=== PATIENT | female | born 1955 | race African-American/Black ===

== ENCOUNTER 2018-08-23 06:43 | Outpatient (CLI) | payer MEDICARE ==
[2018-08-23 16:29] LABS: Hemoglobin 14.3 g/dL (12.0-16.0); Mean Corpuscular HGB CONC 32.1 g/dL (32.0-36.0); Mean Corpuscular Hemoglobin 29.9 pg (27.0-31.0); Mean Platelet Volume 8.3 fL (7.4-10.4); Platelet Count 277 thou/uL (130-400); RBC Distribution Width 12.5 % (11.5-14.5); Red Blood Cell (RBC) Count 4.78 mill/uL (4.20-5.40); White Blood Cell (WBC) Count 9.5 thou/uL (4.8-10.8)
[2018-08-23 16:49] LABS: ALT (SGPT) 22 U/L (8-55); AST (SGOT) 16 U/L (5-34); Albumin 4.2 g/dL (3.4-4.8); Alkaline Phosphatase 107 U/L (40-150); Anion Gap 12 mmol/L (10-20); BUN (Urea Nitrogen) 15 mg/dL (9.8-20.1); Bilirubin, Total 0.3 mg/dL (0.2-1.2); Calc. Creatinine Clearance 0 mL/min (70-130); Calcium 10.5 mg/dL (7.8-10.44); Carbon Dioxide 27 mmol/L (23-31); Chloride 105 mmol/L (98-107); Estimated GFR-MDRD Greater than 90; Globulin 3.2 g/dL (2.4-3.5); Glucose 95 mg/dL (80-115); Potassium 4.5 mmol/L (3.5-5.1); Protein, Total 7.4 g/dL (6.0-8.3); Sodium 139 mmol/L (136-145)
== END 2018-08-23 06:44 | disposition home or self-care (01) ==
LOC: LABBT 06:43
PROVIDERS: ATTEND Obstetrics & Gynecology
DX: Z01.818 Encounter for other preprocedural examination (principal); N81.11 Cystocele, midline
CPT/HCPCS: 80053; 85027; 86850; 86900; 86901; 93005; 93010

== ENCOUNTER 2018-08-23 16:15 | Inpatient (IN) | payer MEDICARE ==
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
[2018-08-23 16:18] VITALS: BMI 29.6
[2018-08-26] MEDS ORDERED: CEFAZOLIN 2 GM/50 ML BAG ONE (09:14)
[2018-08-26] MEDS ORDERED: Lidocaine 1% w/Epinephrine 1:100K 30 ML VIAL ONE (09:41)
[2018-08-26] MEDS ORDERED: Fentanyl 100 MCG/2 ML VIAL ONE ×2 (10:11→11:49)
[2018-08-26] MEDS ORDERED: Promethazine HCl 25 MG/ML VIAL SLOW IVP PRN (10:47)
[2018-08-26] MEDS ORDERED: HYDROmorphone 2 MG/ML VIAL SLOW IVP PRN (10:47)
[2018-08-26] MEDS ORDERED: Promethazine HCl 25 MG/ML VIAL IM PRN (10:47)
[2018-08-26] MEDS ORDERED: Meperidine HCl/PF 25 MG/ML VIAL SLOW IVP PRN (10:47)
[2018-08-26] MEDS ORDERED: traMADol HCl 50 MG TAB PO PRN (11:20)
[2018-08-26] MEDS ORDERED: Zolpidem Tartrate 5 MG TAB PO PRN (11:20)
[2018-08-26] MEDS ORDERED: Acetaminophen 325 MG TAB PO PRN (11:20)
[2018-08-26] MEDS ORDERED: Ondansetron PF 4 MG/2 ML Vial IVP PRN (11:20)
[2018-08-26] MEDS ORDERED: Bisacodyl 10 MG SUPP PR PRN (11:20)
[2018-08-26] MEDS ORDERED: Morphine 4 MG/ML VIAL SLOW IVP PRN (11:20)
[2018-08-26] MEDS ORDERED: Simethicone Chewable 80 MG TAB PO PRN (11:20)
[2018-08-26] MEDS ORDERED: diphenhydrAMINE 25 MG CAP PO PRN (11:20)
[2018-08-26] MEDS: traMADol HCl 50 MG TAB PO PRN ×2 (15:28→21:21)
[2018-08-26] MEDS: metFORMIN 500 MG TAB PO SCH (15:30)
--- NOTE | 2018-08-26 17:06 | OP ---
DATE OF PROCEDURE: 08/26/2018 PREOPERATIVE DIAGNOSIS: A 63-year-old female, prior hysterectomy with symptomatic grade 4 cystocele. POSTOPERATIVE DIAGNOSIS: A 63-year-old female, prior hysterectomy with symptomatic grade 4 cystocele. PROCEDURE PERFORMED: Anterior repair. RESILIENT TILE INSTALLER SURGEON: Tejinder Thomas MD ANESTHESIA: General endotracheal. ESTIMATED BLOOD LOSS: Less than 50 mL. COMPLICATIONS: None. COUNTS: Correct x2. ANTIBIOTICS: 2 g Ancef on-call to OR. FINDINGS: 1. Anterior vaginal cystocele midline prolapsing approximately a centimeter past the vaginal introitus. Upper vaginal vault appeared adequately supported and no significant rectocele seen. 2. Clear urine present in Bauman catheter postprocedure. DISPOSITION: Recovery room, stable. DESCRIPTION OF PROCEDURE: The patient had previously been given informed consent. She was taken back to the operating room, where she received general endotracheal anesthetic agent without complications, placed in dorsal lithotomy position with the use of Edgar stirrups. She was prepped and draped in usual sterile fashion. Bauman catheter was placed. The anterior vaginal cystocele was noted with the previously mentioned findings. The vaginal cuff line was located, and two Allis clamps were placed at the angles. The most posterior component of a midline cystocele was then grasped with pickups, and the anterior vaginal mucosa was infiltrated with 1% lidocaine with epinephrine for hydrodissection. Midline incision was made starting most caudally towards the urethral meatus in the midline approximately 1.5 cm from the urethral meatus. The edges of the anterior vaginal mucosa were grasped with Allis clamps intervening as we progressed up towards the urethral meatus. The anterior vaginal mucosa was dissected sharply and bluntly with the use of Metzenbaum scissors and counter traction, and Ray-Mireya. The internal pelvic fascia was loosened from the anterior vaginal mucosa reducing the cystocele in its entirety. Once this was accomplished, the endopelvic fascia was then plicated starting most closely anteriorly to the urethral meatus. The endopelvic fascia was plicated in the midline and worked toward the posterior portion of the cystocele, reducing the cystocele in its entirety. The excess vaginal mucosa was trimmed, and then the anterior vaginal mucosa was then closed with 0 Vicryl suture incorporating the endopelvic fascia to rid the space, starting near the urethra and working back toward the vaginal cuff line. Hemostasis along the vaginal mucosa was confirmed. This cystocele appeared well reduced. A moistened Kerlix was then placed in the vaginal vault for packing, and clear urine was draining from the Bauman catheter. The patient awakened and transferred to recovery room. Job ID: [id number]
[2018-08-26] MEDS: Lactated Ringer's 1,000 ML IV SCH (21:12)
[2018-08-26] MEDS: Sodium Chloride 0.9% 1,000 ML IV SCH (21:12)
[2018-08-26] MEDS: Ibuprofen 800 MG TAB PO SCH (21:19)
[2018-08-26] MEDS: Gabapentin 300 MG CAP PO SCH (21:20)
[2018-08-26] MEDS: Atorvastatin Calcium 10 MG TAB PO SCH (21:20)
[2018-08-27] MEDS: Lactated Ringer's 1,000 ML IV SCH ×2 (03:45→07:50)
[2018-08-27] MEDS: Sodium Chloride 0.9% 1,000 ML IV SCH ×3 (03:45→07:51)
[2018-08-27 07:06] LABS: Hemoglobin 12.2 g/dL (12.0-16.0); Mean Corpuscular Hemoglobin 29.7 pg (27.0-31.0); Mean Corpuscular Volume 92.7 fL (78.0-98.0); Platelet Count 241 thou/uL (130-400); RBC Distribution Width 12.5 % (11.5-14.5); Red Blood Cell (RBC) Count 4.11 mill/uL (4.20-5.40); White Blood Cell (WBC) Count 11.2 thou/uL (4.8-10.8)
[2018-08-27] MEDS: metFORMIN 500 MG TAB PO SCH ×2 (07:57→16:25)
[2018-08-27] MEDS: Aspirin 81 mg Enteric Coated Tablet PO SCH (07:58)
[2018-08-27] MEDS: Hydrochlorothiazide 25 MG TAB PO SCH (07:58)
[2018-08-27] MEDS: Gabapentin 300 MG CAP PO SCH ×2 (07:59→20:00)
[2018-08-27] MEDS: Ibuprofen 800 MG TAB PO SCH ×2 (07:59→20:00)
[2018-08-27] MEDS: traMADol HCl 50 MG TAB PO PRN ×2 (15:53→22:31)
[2018-08-27] MEDS: Atorvastatin Calcium 10 MG TAB PO SCH (20:00)
[2018-08-28] MEDS: Lactated Ringer's 1,000 ML IV SCH (02:27)
[2018-08-28] MEDS: Sodium Chloride 0.9% 1,000 ML IV SCH (02:27)
[2018-08-28 06:00] LABS: Hemoglobin 12.3 g/dL (12.0-16.0); Mean Corpuscular HGB CONC 32.3 g/dL (32.0-36.0); Mean Corpuscular Hemoglobin 29.9 pg (27.0-31.0); Mean Corpuscular Volume 92.6 fL (78.0-98.0); Mean Platelet Volume 8.4 fL (7.4-10.4); Platelet Count 257 thou/uL (130-400); RBC Distribution Width 12.3 % (11.5-14.5); White Blood Cell (WBC) Count 11.1 thou/uL (4.8-10.8)
[2018-08-28 08:04] VITALS: BP 110/56; TEMP 98.1
[2018-08-28] MEDS: Ibuprofen 800 MG TAB PO SCH (09:00)
[2018-08-28] MEDS: metFORMIN 500 MG TAB PO SCH (09:00)
[2018-08-28] MEDS: Gabapentin 300 MG CAP PO SCH (09:00)
[2018-08-28] MEDS: Aspirin 81 mg Enteric Coated Tablet PO SCH (09:00)
[2018-08-28] MEDS: Hydrochlorothiazide 25 MG TAB PO SCH (09:00)
--- NOTE | 2018-08-29 09:47 | DIS ---
DATE OF ADMISSION: 08/26/2018 DATE OF DISCHARGE: 08/28/2018 DIAGNOSES: 1. Grade 4 cystocele. 2. Postop urinary retention. PROCEDURE PERFORMED: Anterior repair. SUMMARY HOSPITAL COURSE: Ms. Lawson is a 63-year-old female, who previously had complete hysterectomy history, who had symptomatic grade 4 cystocele. She underwent an uncomplicated anterior repair on 08/26/2018. Postoperatively, the patient progressed well, but she did have postop urinary retention on postop day #1 and had a postvoid residual of over 800 mL. Bauman catheter was reinserted due to the large volume and inability to void. She then attempted on postop day #2 again to void and then was unsuccessful and Bauman catheter was replaced and was discharged on 08/28/2018. PLAN: Plan is for her to return to my office on 08/29/2018 for Bauman catheter removal and assessment of voiding capabilities. She was given a prescription for tramadol 50 mg q.6 hours p.r.n. for pain and ibuprofen as directed [id number] and her maintenance medications for her chronic hypertension, hyperlipidemia, and diabetes. Job ID: [id number]
== END 2018-08-28 11:25 | disposition home or self-care (01) | DRG 748 ==
LOC: SURG A 08-26 09:01 → 3SE 08-26 12:41
PROVIDERS: ADMIT Obstetrics & Gynecology; ATTEND Obstetrics & Gynecology
PROC: 0JQC0ZZ Repair Pelvic Region Subcutaneous Tissue and Fascia, Open Approach (ICD-10-PCS; principal; 2018-08-26)
DX: N81.11 Cystocele, midline (principal); R33.8 Other retention of urine; Z98.890 Other specified postprocedural states; I10 Essential (primary) hypertension; E78.5 Hyperlipidemia, unspecified; E11.9 Type 2 diabetes mellitus without complications; Z79.84 Long term (current) use of oral hypoglycemic drugs; Z79.82 Long term (current) use of aspirin
CPT/HCPCS: 36415; 36416; 80053; 85027; 86850; 86900; 86901; 93005; 93010; J0131; J2001; J2270; J3010

== ENCOUNTER 2020-11-29 10:09 | Outpatient (CLI) | payer MEDICARE, MEDICAID | END 2020-11-29 10:10 | disposition home or self-care (01) | LOC: BICULT 10:09 | PROVIDERS: ATTEND Family Medicine | DX: Z13.6 Encounter for screening for cardiovascular disorders (principal); F17.218 Nicotine dependence, cigarettes, with other nicotine-induced disorders; Z12.2 Encounter for screening for malignant neoplasm of respiratory organs; R91.8 Other nonspecific abnormal finding of lung field | CPT/HCPCS: 71271; 76775 ==

== ENCOUNTER 2021-03-01 08:30 | Outpatient (CLI) | payer MEDICARE | END 2021-03-01 08:31 | disposition home or self-care (01) | LOC: BICCT 08:30 | PROVIDERS: ATTEND Family Medicine | DX: R91.8 Other nonspecific abnormal finding of lung field (principal) | CPT/HCPCS: 71271 ==

== ENCOUNTER 2021-07-08 09:27 | Outpatient (CLI) | payer MEDICARE | END 2021-07-08 09:28 | disposition home or self-care (01) | LOC: BICMAMMO 09:27 | PROVIDERS: ATTEND Family Medicine | DX: Z13.820 Encounter for screening for osteoporosis (principal); N95.9 Unspecified menopausal and perimenopausal disorder; M81.0 Age-related osteoporosis without current pathological fracture | CPT/HCPCS: 77080 ==

== ENCOUNTER 2021-10-05 08:22 | Outpatient (CLI) | payer OTHER ==
[2021-10-05 09:06] LABS: Estimated GFR-MDRD - POC Greater than 90
[2021-10-05] MEDS ORDERED: Iopamidol-370 76% 500 ML 1 ML ONE (10:20)
== END 2021-10-05 08:23 | disposition home or self-care (01) ==
LOC: BICCT 08:22
PROVIDERS: ATTEND Family Medicine
DX: R91.8 Other nonspecific abnormal finding of lung field (principal)
CPT/HCPCS: 71270; 82565

== ENCOUNTER 2022-01-30 09:47 | Outpatient (CLI) | payer MEDICARE | END 2022-01-30 09:48 | disposition home or self-care (01) | LOC: BICMAMMO 09:47 | PROVIDERS: ATTEND Family Medicine | DX: Z12.31 Encounter for screening mammogram for malignant neoplasm of breast (principal) | CPT/HCPCS: 77063; 77067 ==

== ENCOUNTER 2023-07-13 10:56 | Outpatient (CLI) | payer MEDICARE | END 2023-07-13 10:57 | disposition home or self-care (01) | LOC: BICRAD 10:56 | PROVIDERS: ATTEND Family Medicine | DX: M25.562 Pain in left knee (principal); M17.12 Unilateral primary osteoarthritis, left knee ==

== ENCOUNTER 2023-07-18 08:34 | Outpatient (CLI) | payer MEDICARE | END 2023-07-18 08:35 | disposition home or self-care (01) | LOC: BICCT 08:34 | PROVIDERS: ATTEND Family Medicine | DX: S09.90XA Unspecified injury of head, initial encounter (principal); M25.562 Pain in left knee; M54.2 Cervicalgia | CPT/HCPCS: 70450; 72125 ==

== ENCOUNTER 2025-05-27 09:52 | Outpatient (CLI) | payer OTHER | END 2025-05-27 09:53 | disposition home or self-care (01) | LOC: BICCT 09:52 | PROVIDERS: ATTEND Family Medicine | DX: Z12.2 Encounter for screening for malignant neoplasm of respiratory organs (principal); F17.210 Nicotine dependence, cigarettes, uncomplicated | CPT/HCPCS: 71271 ==